=== PATIENT | female | born 1970 ===

== ENCOUNTER 2019-08-17 13:39 | Outpatient (CLI) | payer MEDICAID ==
[~2019-08-17] VITALS: Ht 165.1 cm; Wt 53.5 kg
[2019-08-17 15:02] VITALS: BP 103/73
[2019-08-17] MEDS ORDERED: PRILOSEC OTC20 MG ORAL (15:02)
[2019-08-17] MEDS ORDERED: GAVISCON ES TA1 EACH PO (15:02)
[2019-08-17] MEDS ORDERED: TRIPHALA (15:02)
[2019-08-17] MEDS ORDERED: IMITREX50 MG ORAL (15:02)
[2019-08-17] MEDS ORDERED: PROPRANOLOL HCL20 MG ORAL (15:02)
[2019-08-17] MEDS ORDERED: ATIVAN0.5 MG ORAL (15:02)
--- NOTE | 2019-08-17 19:44 | Consultation ---
DATE OF CONSULTATION: 08/17/2019 CHIEF COMPLAINT: GERD. HISTORY OF PRESENT ILLNESS: The patient admitted through the emergency room few times last month for severe GERD and chest pain. She was given Imitrex and omeprazole. Also had Prilosec with minimum improvement so she is here for evaluation. PAST MEDICAL HISTORY: 1. GERD. 2. Anxiety. 3. Anemia, iron deficiency. PAST SURGICAL HISTORY: None. MEDICATIONS: Please see medication reconciliation list. FAMILY HISTORY: Mother had a peptic ulcer, coronary artery disease, hypertension. SOCIAL HISTORY: The patient denies any alcohol or drug abuse. She used to chew tobacco, but not smoke tobacco. ALLERGIES: Almonds and . REVIEW OF SYSTEMS: Positive for GERD and constipation. PHYSICAL EXAMINATION: VITAL SIGNS: Temperature 98.4, blood pressure 103/73, pulse of 67, respirations 20. HEENT: Normocephalic and atraumatic. Sclerae anicteric. NECK: Supple. No evidence of obvious lymphadenopathy. CARDIOVASCULAR: Regular rate and rhythm. Plus S1, S2. LUNGS: Clear to auscultation bilaterally. ABDOMEN: Positive bowel sounds. Soft and nontender. No rebound. No guarding. No peritoneal sign. EXTREMITIES: No cyanosis. No clubbing. No edema. ASSESSMENT: This is a 48-year-old female with chronic GERD causing chest pain and headaches. PLAN: Start omeprazole 40 mg twice a day. Add baclofen at bedtime. The patient to be scheduled for endoscopy. Delano Alegria M.D. DR: Sharita JOB#: [id number] CC:
== END 2019-08-17 15:39 | disposition home or self-care (01) ==
LOC: PAN 13:39
DX: K21.9 Gastro-esophageal reflux disease without esophagitis (principal); F41.9 Anxiety disorder, unspecified; K59.00 Constipation, unspecified; R07.9 Chest pain, unspecified; R51 Headache
CPT/HCPCS: G0463

== ENCOUNTER 2019-08-31 12:09 | Outpatient (CLI) | payer MEDICAID ==
[~2019-08-31 12:09] MED LIST: ATIVAN0.5 MG ORAL; GAVISCON ES TA1 EACH PO; IMITREX50 MG ORAL; PRILOSEC OTC20 MG ORAL; PROPRANOLOL HCL20 MG ORAL; TRIPHALA
--- NOTE | 2019-09-01 14:01 | General Progress Note ---
Assessment/Plan Assessment/Plan: HP positive gastrtis, S/p treatment stool test for HP RTC e months repeat colon in 5 years Subjective ROS Limited/Unobtainable: Yes Allergies: Coded Allergies: [place] (Verified Allergy, Unknown, 08/17/19) [place] (Verified Allergy, Unknown, 08/17/19) GRASS POLLEN (Verified Allergy, Unknown, 08/17/19) Melanie Nut (Verified Allergy, Unknown, 08/17/19) [place] (Verified Allergy, Unknown, 08/17/19) Objective General Appearance: alert EENT: normal ENT inspection Neck: supple Cardiovascular: normal rate Respiratory/Chest: decreased breath sounds Abdomen: normal bowel sounds, non tender, soft Extremities: non-tender Delano Alegria MD September 01, 2019 14:01
== END 2019-08-31 14:09 | disposition home or self-care (01) ==
LOC: PAN 12:09
DX: K29.70 Gastritis, unspecified, without bleeding (principal); B96.81 Helicobacter pylori [H. pylori] as the cause of diseases classified elsewhere; Z91.018 Allergy to other foods
CPT/HCPCS: G0463